=== PATIENT | female | born 1995 | race African-American/Black ===

== ENCOUNTER 2022-01-28 18:48 | Emergency (ER) | payer OTHER ==
[2022-01-28 18:59] VITALS: TEMP 98.3; BMI 25.3
[2022-01-28] MEDS ORDERED: methylPREDNISolone NA SUCC 125 MG/2 ML VIAL IVPB ONE (19:01)
[2022-01-28] MEDS ORDERED: FAMOTIDINE 20 MG/50 ML IVPB 20 MG/50 ML MG IVPB ONE (19:01)
[2022-01-28] MEDS ORDERED: methylPREDNISolone NA SUCC 125 MG/2 ML VIAL ONE (19:05)
[2022-01-28] MEDS ORDERED: FAMOTIDINE 10 MG/ML VIAL IVPB ONE (19:05)
[2022-01-28 19:51] VITALS: PULSE 89
[2022-01-28 20:55] VITALS: BP 122/78
== END 2022-01-28 20:53 | disposition home or self-care (01) ==
LOC: JER 18:48
PROC: 3E033GC Introduction of Other Therapeutic Substance into Peripheral Vein, Percutaneous Approach (ICD-10-PCS; principal; 2022-01-28)
DX: T78.40XA Allergy, unspecified, initial encounter (principal)
CPT/HCPCS: 99284-25